=== PATIENT | female | born 2000 | race Caucasian/White ===

== ENCOUNTER 2018-04-28 12:31 | Observation (INO) | payer MEDICAID ==
[2018-04-28] MEDS ORDERED: Octreotide Acetate 50 MCG/ML AMP SLOW IVP SCH (13:30)
--- NOTE | 2018-04-28 13:42 | PDOC.FPRHP ---
- History of Present Illness Chief Complaint: Hypoglycemia History of Present Illness: 17 yo F with PMH prader willi and IDDM2 transferred from outside ED for hypoglycemia. No family in room and history difficult to obtain from patient. She says she did not check her BG this am and gave herself her insulin anyway. Does not know how much insulin she has taken today. Notes no change in what she ate today. She cannot recall any symptoms. Many questions I asked, she answered "I don't know". She does not know what led her to end up in ED other than that her aunt brought her. Denies N/V. Reports SOB previously today which resolved spontaneously and she now denies. Reports nonproductive cough with subjective fever the past couple days which her grandma who she lives with also has. Denies headache, CP, heart palpitations, fever/ chills today. She keeps her eyes closed during much of the conversation but responds to questions appropriately, does not fall asleep during conversation. B/l LE edema is unchanged compared to baseline, she reports. Denies previous hospitalization. Unsure of patient's baseline mentation. History of DM2, on insulin since age 10. Manager Orange is Dr. Ruiz. Says she takes 37 u Lantus in am and 42 u Lantus at bedtime. Uses Novolog for SSI, 10 -[address] u [address] Chung" is PCP ED Course: 1 amp D50, started 1L D5 - Allergies/Adverse Reactions Allergies Allergy/AdvReac Type Severity Reaction Status Date / Time No Known Allergies Allergy Verified 04/28/18 15:38 - Home Medications Medication Instructions Recorded Confirmed Type Insulin Aspart [Novolog Flexpen] 0 unit SQ ACHS 04/28/18 04/28/18 History Insulin Glargine,Hum.Rec.Anlog 35 unit SQ QAM 04/28/18 04/28/18 History [Lantus Solostar] Insulin Glargine,Hum.Rec.Anlog 42 unit SQ QPM 04/28/18 04/28/18 History [Lantus Solostar] Lisinopril 10 mg PO DAILY 04/28/18 04/28/18 History metFORMIN HCl [Metformin HCl] 1,000 mg PO BID 04/28/18 04/28/18 History - History PMHx: prader willi, scoliosis, IDDM2 PSHx: back surgery FHx: Patient does not know Social: Lives with grandma in [place], [place]. Was visiting Aunt who lives in this area. Denies tobacco, alcohol, drug use. - Review of Systems General: denies: fever/chills, weight/appetite/sleep changes Eyes: denies: eye pain, vision changes ENT: denies: nasal congestion, rhinorrhea Respiratory: reports: cough. denies: congestion, shortness of breath Cardiovascular: reports: edema. denies: chest pain, palpitation Gastrointestinal: denies: nausea, vomiting, diarrhea, constipation, abdominal pain Genitourinary: denies: incontinence, dysuria Skin: denies: rashes, lesions Musculoskeletal: denies: pain, tenderness Neurological: denies: numbness, syncope - Vital signs BP: 100/59 HR: 97 RR: 21 Tmax: 99.2 Pox: 94% on RA Wt: 86 kg - Physical Exam Constitutional: NAD -Constitutional: eyes closed, but not lethargic. Oriented to person, said it was April. Did not know city. HEENT: normocephalic and atraumatic, EOMI, conjunctiva clear, grossly normal vision, TM's clear and intact, grossly normal hearing, normal nasal mucosa, MMM , oropharynx clear Neck: trachea midline Heart: RRR, normal S1/S2, no murmurs/rubs/gallops, other (3+ pitting edema b/l LE, up to knees. Appears L>R) Lungs: CTAB, no respiratory distress, no rales/rhonchi, no wheezing Abdomen: soft (obese), non-tender, bowel sounds present Musculoskeletal: normal structure, normal tone Neurological: no focal deficit Skin: other (Minimal erythema of LLE, feels warm to palpation. B/l LE nontender. ) Heme/Lymphatic: no unusual bruising or bleeding, no purpura, no petechia FMR H&P: A/P - Problem List (1) Hypoglycemia due to insulin Current Visit: Yes Status: Acute Code(s): E16.0 - DRUG-INDUCED HYPOGLYCEMIA WITHOUT COMA; T38.3X5A - ADVERSE EFFECT OF INSULIN AND ORAL HYPOGLYCEMIC DRUGS, INIT (2) Leukocytosis Current Visit: Yes Status: Acute Code(s): D72.829 - ELEVATED WHITE BLOOD CELL COUNT, UNSPECIFIED (3) Prader-Willi syndrome Current Visit: Yes Status: Chronic Code(s): Q87.1 - CONGENITAL MALFORM SYNDROMES PREDOM ASSOC W SHORT STATURE (4) Scoliosis Current Visit: Yes Status: Chronic (5) HTN (hypertension) Current Visit: Yes Status: Acute Code(s): I10 - ESSENTIAL (PRIMARY) HYPERTENSION - Plan 17 yo F with PMH IDDM2 and prader willi admitted for hypoglycemia. Hypoglycemia 2/2 insulin use - IDDM2, Home regimen Lantus 37u qam and 42 u bedtime. Novolog SSI with meals, 10-20 u typically. Metformin. - unsure how much insulin she has taken today - BG on BMP 29, now improved to 105 - Continue D5 IVF - accuchecks q2h - hold home medications for now. Will restart half dose insulin tonight considering pt will likely be eating dinner. Leukocytosis - WBC 13.8 - CXR showed mild pulmonary vasc congestion - only symptom is cough, viral etiology most likely based on history - afebrile, satting 94% on RA - procalcitonin ordered HTN - on lisinopril at home - BP stable Hx of Prader Willi Hx of scoliosis s/p surgery Code: Full Diet: CC Ppx: lovenox Dispo: admit to medicine for observation FMR H&P: Upper Level - Pertinent history 17 yo CF with PMH significant for Prader Willi & IDDM2. Pt reports diagnosed as type 2 DM and started insulin at 10 years of age. Pt accompanied by aunt who notes pt c/o cough, congestion, and overall fatigue over the last few days with positive sick contacts. She is currently visiting and lives with her grandmother in [place], [place]. Pt reportedly took unknown amount insulin this AM without checking blood sugar levels, felt shaky, more weak, sweaty and become more unresponsive so aunt drove her to [facility]. Pt notes compliance with medications but aunt states otherwise. Pt has never been hospitalized. - Pertinent findings Gen: obese in NAD, somnolent but arousable CV: RRR, no murmurs Resp: normal effort, CTAB - Plan Date/Time: 04/28/18 1342 I, Morgan Kumar MD PGY3, have evaluated this patient and agree with findings/ plan as outlined by internet webmaster resident. Pertinent changes/additions are listed here. 1. Iatrogenic hypoglycemia 2/2 insulin misuse -Pt presents after taking insulin without eating earlier today and was noted to have persistent hypoglycemia at outside ER. Pt received 1L D5 1/2NS, 25g of D50W , and 1L NS and trended glucose levels have been within normal limits. -Will observe pt with frequent accuchecks and hypoglycemia protocol. -Will place pt on gentle IVF with D5 1/2NS @ 80 mL/hr. -Resume evening insulin at half dose until pt proves she can tolerate full PO diet. 2. Mild leukocytosis -Possibly reactionary response. Will obtain procalcitonin but based on symptoms , likely viral etiology. 3. Prader Willi Syndrome -Resume home medications. FULL code PPx: Lovenox for VTE, protonix for GI. disposition: Admit to observation for anticipated length of stay less than two midnights, pending clinical course. Attending Addendum - Attending Addendum Date/Time: 04/28/18 2891 I personally evaluated the patient and discussed the management with Dr. Zaragoza I agree with the History, Examination, Assessment and Plan documented above with any addition or exceptions noted below- 17 yo female with h/o type 2 DM on insulin and Prader-Willi syndrome presented with hypoglycemia. Patient is here visiting family and did not check her BG but took her insulin and did not eat either her patient. She became shaky, sweaty and EMS called. On arrival by EMS BG=11, given D50 and transported to [facility] and then here. Patient reports cough for last week with decreased appetite. PMH/PSH/All/meds reviewed and agree with resident's documentation. Afebrile VSS. AExam repeated by me and agree with resident's findings. Labs: BG [id number]. A/P: 1 ) Hypoglycemia due to insulin- BG now stable; will allow patient to eat and wean IVF. Will give lower dose of home regimen
[2018-04-28] MEDS ORDERED: Dextrose 50% Abboject 50 ML SYRINGE SLOW IVP PRN (14:06)
[2018-04-28] MEDS ORDERED: Dextrose 5% in Water 1,000 ML IV PRN (14:06)
[2018-04-28] MEDS ORDERED: Insulin Regular 300 UNITS/3 ML VIAL SC PRN (14:09)
[2018-04-28 15:35] VITALS: BMI 38.3
[2018-04-28] MEDS: Dextrose 5 % And 0.9 % NaCl 1,000 ML IV SCH (16:10)
[2018-04-28] MEDS: Insulin Glargine 21 UNITS in Pre-Filled Syringe 1 EACH SC SCH (20:13)
[2018-04-29] MEDS: HumaLOG 300 UNITS/3 ML VIAL SC PRN ×3 (01:10→20:17)
[2018-04-29] MEDS: Dextrose 5 % And 0.9 % NaCl 1,000 ML IV SCH (04:12)
[2018-04-29 05:18] LABS: Anion Gap 11 mmol/L (10-20); BUN (Urea Nitrogen) 12 mg/dL (8.4-21.0); Calc. Creatinine Clearance 192 mL/min (70-130); Calcium 9.1 mg/dL (7.8-10.44); Carbon Dioxide 28 mmol/L (22-29); Chloride 104 mmol/L (98-107); Estimated GFR-MDRD Greater than 90; Glucose 176 mg/dL (70-105); Potassium 4.4 mmol/L (3.5-5.1); Sodium 139 mmol/L (136-145)
[2018-04-29 05:27] LABS: Band 2 % (5-11); Hemoglobin 12.9 g/dL (12.0-16.0); Lymphocytes 23 % (28-48); MDiff Complete? YES; Mean Corpuscular HGB CONC 30.4 g/dL (32.0-36.0); Mean Corpuscular Hemoglobin 28.8 pg (25.0-35.0); Mean Corpuscular Volume 94.7 fL (78.0-98.0); Mean Platelet Volume 7.5 fL (7.4-10.4); Monocytes 6 % (0-4); Neutrophil 64 % (31-61); PLT Morphology Comment Appears Increased; Platelet Count 424 thou/uL (130-400); RBC Distribution Width 13.3 % (11.5-14.5); RBC Morphology Normal; Reactive Lymphocytes 4 % (0-10); Red Blood Cell (RBC) Count 4.47 mill/uL (4.00-5.20); White Blood Cell (WBC) Count 12.5 thou/uL (4.8-10.8)
--- NOTE | 2018-04-29 06:27 | PDOC.FM ---
- Subjective Subjective: Pt. states she slept well overnight. Denies dizziness, lightheadedness, sob, or chest pain. I also questioned pt. regarding insulin use and she is unsure of how much she gets per day. - Objective MAR Reviewed: Yes Vital Signs & Weight: Vital Signs (12 hours) Temp Pulse Resp BP Pulse Ox 04/29/18 00:10 98.2 F 106 H 16 98/59 L 95 04/28/18 20:05 98.1 F 111 H 18 114/71 97 Weight Weight 86.183 kg I&O: 04/27/18 04/28/18 04/29/18 06:59 06:59 06:59 Intake Total 1218 Balance 1218 Result Diagrams: 04/29/18 04:17 04/29/18 04:17 <Adryan Hanson - Last Filed: 04/29/18 10:56> - Objective Vital Signs & Weight: Vital Signs (12 hours) Temp Pulse Resp BP Pulse Ox 04/29/18 08:00 93 L 04/29/18 07:37 97.8 F 103 H 20 136/84 93 L 04/29/18 04:05 98.2 F 105 H 16 118/84 95 Weight Weight 86.183 kg I&O: 04/28/18 04/29/18 04/30/18 06:59 06:59 06:59 Intake Total 1218 480 Balance 1218 480 Result Diagrams: 04/29/18 04:17 04/29/18 04:17 <Keri Lau - Last Filed: 04/29/18 14:17> Phys Exam - Physical Examination Constitutional: NAD HEENT: moist MMs Neck: supple, full ROM Respiratory: no wheezing, clear to auscultation bilateral Cardiovascular: RRR, no significant murmur, no rub Gastrointestinal: soft, non-tender, no distention, positive bowel sounds Musculoskeletal: no edema, pulses present Neurological: non-focal, normal sensation, moves all 4 limbs Psychiatric: normal affect, A&O x 3 Skin: normal turgor, cap refill <2 seconds <Adryan Hanson - Last Filed: 04/29/18 10:56> Dx/Plan (1) Hypoglycemia due to insulin Code(s): E16.0 - DRUG-INDUCED HYPOGLYCEMIA WITHOUT COMA; T38.3X5A - ADVERSE EFFECT OF INSULIN AND ORAL HYPOGLYCEMIC DRUGS, INIT Status: Acute (2) Leukocytosis Code(s): D72.829 - ELEVATED WHITE BLOOD CELL COUNT, UNSPECIFIED Status: Acute (3) Prader-Willi syndrome Code(s): Q87.1 - CONGENITAL MALFORM SYNDROMES PREDOM ASSOC W SHORT STATURE Status: Chronic - Plan Plan: Thisis a 17 yo female with IDDM2 and prader willi Hypoglycemia 2/2 insulin use -IDDM2, home lantus 37 un qam, 42u qpm, novolog SSI with meals, 10-20u, and metformin -Poor historian of insulin use -BG on admission was 29, now is 121-200s -accuchecks q2hr, we may back off on timing if she continues to improve -Will discontinue D5 later this morning -Pt. is on half home dose currently -I will be attempting to contact her grandmother in regards to her insulin usage. At present I will discuss with nursing to observe how pt. gives sliding scale insulin. Leukocytosis - decreasing slightly 13.8-->12.5 -afebrile -Pt. has slight cough, likely viral -procal 0.03 HTN -Continue home meds -will monitor Hx of Prader willi Hx of scoliosis s/p surgery <Adryan Hanson - Last Filed: 04/29/18 10:56> Attending Addendum - Attending Addendum Date/Time: 04/29/18 1414 I personally evaluated the patient and discussed the management with Dr. Hanson. I agree with the History, Examination, Assessment and Plan documented above with any addition or exceptions noted below. Pt's blood sugar is stable. Will stop D5 drip. Monitor sugars. Dr. Hanson will attempt to talk with family regarding how she uses her insulin and calculates sliding scale. The patient told us she just picks a number. This is the likely result of her hypotension on presentation. <Keri Lau - Last Filed: 04/29/18 14:17>
[2018-04-29] MEDS: Insulin Glargine 18 UNITS in Pre-Filled Syringe 1 EACH SC SCH (08:58)
[2018-04-29] MEDS: metFORMIN 500 MG TAB PO SCH ×2 (08:58→17:36)
[2018-04-29] MEDS: Enoxaparin Sodium 40 MG/0.4 ML SYRINGE SC SCH (09:00)
[2018-04-29] MEDS: Insulin Glargine 21 UNITS in Pre-Filled Syringe 1 EACH SC SCH (20:16)
[2018-04-30] MEDS: HumaLOG 300 UNITS/3 ML VIAL SC PRN ×2 (05:09→11:45)
[2018-04-30 05:53] LABS: Anion Gap 10 mmol/L (10-20); BUN (Urea Nitrogen) 10 mg/dL (8.4-21.0); Calc. Creatinine Clearance 202 mL/min (70-130); Calcium 9.4 mg/dL (7.8-10.44); Carbon Dioxide 31 mmol/L (22-29); Chloride 100 mmol/L (98-107); Estimated GFR-MDRD Greater than 90; Glucose 189 mg/dL (70-105); Potassium 4.4 mmol/L (3.5-5.1); Sodium 137 mmol/L (136-145)
--- NOTE | 2018-04-30 05:54 | PDOC.FM ---
- Subjective Subjective: Pt has no complaints this morning. She states that her aunt does not help her with her insulin but that she could if need be. Pt denies chest pain, SOB, dizziness, nausea, or vomiting. I spoke with the nurse and apparently the pt. has all of her insulin unrefrigerated in her bag in her room. The nurse asked if the pt knew it should be refrigerated and she confirmed that it should be. - Objective MAR Reviewed: Yes Vital Signs & Weight: Vital Signs (12 hours) Temp Pulse Resp BP Pulse Ox 04/29/18 19:39 98.0 F 106 H 18 114/74 96 Weight Weight 86.183 kg I&O: 04/28/18 04/29/18 04/30/18 06:59 06:59 06:59 Intake Total 1218 1320 Balance 1218 1320 Result Diagrams: 04/30/18 05:02 04/30/18 05:02 <Adryan Hanson - Last Filed: 04/30/18 09:33> - Objective Vital Signs & Weight: Vital Signs (12 hours) Temp Pulse Resp BP Pulse Ox 04/30/18 07:49 98.2 F 92 18 118/82 93 L Weight Weight 86.183 kg I&O: 04/29/18 04/30/18 05/01/18 06:59 06:59 06:59 Intake Total 1218 1920 Balance 1218 1920 Result Diagrams: 04/30/18 05:02 04/30/18 05:02 <Keri Lau - Last Filed: 04/30/18 15:27> Phys Exam - Physical Examination Constitutional: NAD HEENT: moist MMs Respiratory: no wheezing, clear to auscultation bilateral Cardiovascular: RRR, no significant murmur Gastrointestinal: soft, non-tender, no distention, positive bowel sounds Musculoskeletal: pulses present, edema present (1 + pitting edema in bilateral LE) Neurological: moves all 4 limbs Psychiatric: normal affect, A&O x 3 Skin: cap refill <2 seconds <Adryan Hanson - Last Filed: 04/30/18 09:33> Dx/Plan (1) Hypoglycemia due to insulin Code(s): E16.0 - DRUG-INDUCED HYPOGLYCEMIA WITHOUT COMA; T38.3X5A - ADVERSE EFFECT OF INSULIN AND ORAL HYPOGLYCEMIC DRUGS, INIT Status: Acute (2) Leukocytosis Code(s): D72.829 - ELEVATED WHITE BLOOD CELL COUNT, UNSPECIFIED Status: Acute (3) Prader-Willi syndrome Code(s): Q87.1 - CONGENITAL MALFORM SYNDROMES PREDOM ASSOC W SHORT STATURE Status: Chronic - Plan Plan: This is a 17 yo female with IDDM2 and prader willi Hypoglycemia 2/2 insulin use -IDDM2, home lantus 37 un qam, 42u qpm, novolog SSI with meals, 10-20u, and metformin -Poor historian of insulin use -BG on admission was 29, now is 142-207s -accuchecks q2hr, we may back off on timing if she continues to improve -Pt. is on half home dose currently -I will continue to try to contact her grandmother and aunt in regards to her insulin usage as well as insulin. Nursing has been instructed to observe how she would calculate her dose of insulin Leukocytosis - decreasing slightly 13.8-->12.5 -afebrile -Pt. has slight cough, likely viral -procal 0.03 HTN -Continue home meds -will monitor Hx of Prader willi Hx of scoliosis s/p surgery Pt will likely go home tomorrow. Pt will need case management consult for home health to help pt with insulin. I will continue to attempt contact with pt's family. <Adryan Hanson - Last Filed: 04/30/18 09:33> Attending Addendum - Attending Addendum Date/Time: 04/30/18 0305 I personally evaluated the patient and discussed the management with Dr. Hanson. I agree with the History, Examination, Assessment and Plan documented above with any addition or exceptions noted below. The patient does not appear to have a good understanding of her insulin, how it should be refridgerated or how much insulin to take a time. She does not appear safe to self-administer meds. Will try to coordinate with family regarding care. <Keri Lau - Last Filed: 04/30/18 15:27>
[2018-04-30 05:57] LABS: Band 1 % (5-11); Eosinophils 4 % (0-10); Hemoglobin 12.7 g/dL (12.0-16.0); Lymphocytes 26 % (28-48); MDiff Complete? YES; Mean Corpuscular Hemoglobin 29.7 pg (25.0-35.0); Mean Corpuscular Volume 92.8 fL (78.0-98.0); Mean Platelet Volume 7.5 fL (7.4-10.4); Monocytes 6 % (0-4); Neutrophil 62 % (31-61); PLT Morphology Comment Appears Adequate; Platelet Count 355 thou/uL (130-400); RBC Distribution Width 12.9 % (11.5-14.5); RBC Morphology Normal; Reactive Lymphocytes 1 % (0-10); Red Blood Cell (RBC) Count 4.26 mill/uL (4.00-5.20); White Blood Cell (WBC) Count 11.1 thou/uL (4.8-10.8)
[2018-04-30] MEDS: Enoxaparin Sodium 40 MG/0.4 ML SYRINGE SC SCH (09:09)
[2018-04-30] MEDS: metFORMIN 500 MG TAB PO SCH ×2 (09:09→19:40)
[2018-04-30] MEDS: Insulin Glargine 18 UNITS in Pre-Filled Syringe 1 EACH SC SCH (09:10)
[2018-04-30 10:13] LABS: Hemoglobin A1c 11.7 % (4.0-6.0)
[2018-04-30] MEDS: Insulin Glargine 21 UNITS in Pre-Filled Syringe 1 EACH SC SCH (20:34)
[2018-05-01 05:44] LABS: Band 2 % (5-11); Eosinophils 4 % (0-10); Hemoglobin 13.3 g/dL (12.0-16.0); Lymphocytes 27 % (28-48); MDiff Complete? YES; Mean Corpuscular HGB CONC 31.8 g/dL (32.0-36.0); Mean Corpuscular Hemoglobin 29.5 pg (25.0-35.0); Mean Platelet Volume 7.5 fL (7.4-10.4); Monocytes 6 % (0-4); Neutrophil 60 % (31-61); PLT Morphology Comment Appears Adequate; Platelet Count 363 thou/uL (130-400); Red Blood Cell (RBC) Count 4.51 mill/uL (4.00-5.20); White Blood Cell (WBC) Count 11.7 thou/uL (4.8-10.8)
[2018-05-01 05:50] LABS: Anion Gap 11 mmol/L (10-20); BUN (Urea Nitrogen) 14 mg/dL (8.4-21.0); Calc. Creatinine Clearance 205 mL/min (70-130); Carbon Dioxide 32 mmol/L (22-29); Chloride 99 mmol/L (98-107); Estimated GFR-MDRD Greater than 90; Glucose 135 mg/dL (70-105); Potassium 4.4 mmol/L (3.5-5.1); Sodium 138 mmol/L (136-145)
--- NOTE | 2018-05-01 05:56 | PDOC.FM ---
- Subjective Subjective: Pt reports no complaints. Nursing states that she did well overnight and her sugars have been controlled. - Objective MAR Reviewed: Yes Vital Signs & Weight: Vital Signs (12 hours) Temp Pulse Resp BP Pulse Ox 04/30/18 20:19 98.1 F 103 H 18 115/78 93 L 04/30/18 19:12 94 L Weight Weight 86.183 kg I&O: 04/29/18 04/30/18 05/01/18 06:59 06:59 06:59 Intake Total 1218 1920 720 Balance 1218 1920 720 Result Diagrams: 05/01/18 04:37 05/01/18 04:37 <Adryan Hanson - Last Filed: 05/01/18 13:48> - Objective Vital Signs & Weight: Weight Weight 86.183 kg Result Diagrams: 05/01/18 04:37 05/01/18 04:37 <Jeremy Berman - Last Filed: 05/08/18 10:17> Phys Exam - Physical Examination Constitutional: NAD HEENT: moist MMs Neck: supple Respiratory: no wheezing, clear to auscultation bilateral Cardiovascular: RRR, no significant murmur Gastrointestinal: soft, non-tender, no distention, positive bowel sounds Musculoskeletal: pulses present, edema present (mild edema bilaterally) Neurological: non-focal, moves all 4 limbs Psychiatric: normal affect, A&O x 3 Skin: cap refill <2 seconds <Adryan Hanson - Last Filed: 05/01/18 13:48> Dx/Plan (1) Hypoglycemia due to insulin Code(s): E16.0 - DRUG-INDUCED HYPOGLYCEMIA WITHOUT COMA; T38.3X5A - ADVERSE EFFECT OF INSULIN AND ORAL HYPOGLYCEMIC DRUGS, INIT Status: Acute (2) Leukocytosis Code(s): D72.829 - ELEVATED WHITE BLOOD CELL COUNT, UNSPECIFIED Status: Acute (3) Prader-Willi syndrome Code(s): Q87.1 - CONGENITAL MALFORM SYNDROMES PREDOM ASSOC W SHORT STATURE Status: Chronic - Plan Plan: This is a 17 yo female with IDDM2 and prader willi Hypoglycemia 2/2 insulin use -IDDM2, home lantus 37 un qam, 42u qpm, novolog SSI with meals, 10-20u, and metformin -Poor historian of insulin use -BG on admission was 29, now is 92-179 overnight -accuchecks q2hr, we may back off on timing if she continues to improve -Pt. is on half home dose currently Leukocytosis - decreasing slightly 13.8-->11.7 -afebrile -Pt. has slight cough, likely viral -procal 0.03 HTN -Continue home meds -will monitor Hx of Prader willi Hx of scoliosis s/p surgery Pt will likely go home today. I was finally able to talk with family. The aunt states pt will be staying with her in the near future and that she would be willing to help if taught. The aunt also states that pt will be moving to [place] to live with mother that that she would be willing to talk with mother in regards to insulin usage and administration. <Adryan Hanson - Last Filed: 05/01/18 13:48> Attending Addendum - Attending Addendum Date/Time: 05/08/18 1015 I personally evaluated the patient and discussed the management with Dr. Hanson. I agree with the History, Examination, Assessment and Plan documented above with any addition or exceptions noted below. Pt. w/o c/o's. Vitals stable. Glucoses controlled on half home dosed insulin. Aunt has been educated and willing to assume responsibility for supervising insulin care and administration until pt. returns to [place] to live with mom. OK with D/C. <Jeremy Berman - Last Filed: 05/08/18 10:17>
[2018-05-01] MEDS: metFORMIN 500 MG TAB PO SCH (08:22)
[2018-05-01] MEDS: Enoxaparin Sodium 40 MG/0.4 ML SYRINGE SC SCH (08:22)
[2018-05-01] MEDS: Insulin Glargine 18 UNITS in Pre-Filled Syringe 1 EACH SC SCH (08:23)
[2018-05-01 15:11] VITALS: BP 127/78; TEMP 98.1
--- NOTE | 2018-05-02 05:15 | DIS ---
DATE OF ADMISSION: 04/28/2018 DATE OF DISCHARGE: 05/01/2018 RESIDENT: Adryan Hanson DO. ADMITTING ATTENDING: DISCHARGE ATTENDING: Jeremy Berman MD CONSULTS: None. PROCEDURES: None. PRIMARY DIAGNOSIS: Hypoglycemia, secondary to insulin misuse. SECONDARY DIAGNOSES: scoliosis, insulin-dependent diabetes mellitus type 2. DISCHARGE MEDICATIONS: 1. Insulin glargine 18 units q.a.m. and 21 units q.p.m. 2. Insulin aspart sliding scale with meals. 3. Lisinopril 10 mg p.o. daily. 4. Metformin 1000 mg p.o. b.i.d. DISCONTINUED MEDICATIONS: None. BRIEF HISTORY OF PRESENT ILLNESS/HOSPITAL COURSE: This is a 17-year-old female, who presented to ER after hypoglycemic episode. At home, glucose was measured at 11 and in the hospital, it was measured at 29 and reports that the patient spins her insulin pen at random and gives herself insulin throughout the day. While the patient was here, she had a more routine schedule as well as controlled administration of her medications and improved greatly. At the time of discharge, the patient was stable, and aunt and uncle were given instructions regarding checking blood sugar and administration of insulin. DISPOSITION: Stable. DISCHARGE INSTRUCTIONS: 1. Location: Home. 2. Diet: Carb consistent. 3. Activity: As tolerated. 4. Followup: With primary care physician either in [facility] or in [place] depending on when moves. Job ID: [id number]
== END 2018-05-01 15:25 | disposition home or self-care (01) ==
LOC: ERS 12:31 → T4-B 13:37
PROVIDERS: ADMIT Family Medicine; ATTEND Family Medicine
DX: E11.649 Type 2 diabetes mellitus with hypoglycemia without coma (principal); M41.9 Scoliosis, unspecified; I10 Essential (primary) hypertension; D72.829 Elevated white blood cell count, unspecified; Q87.1 Congenital malformation syndromes predominantly associated with short stature; Z79.4 Long term (current) use of insulin; Z98.890 Other specified postprocedural states
CPT/HCPCS: 36415; 36416; 80048; 83036; 84145; 85007; 85027; 90471; 90732; 94760; 96361; 96372; 96374; G0009; G0378; J1650; J2354